=== PATIENT | male | born 1965 | race Caucasian/White ===

== ENCOUNTER 2017-01-10 02:17 | Emergency (ER) | payer OTHER ==
--- NOTE | 2017-01-10 02:32 | PDOC ---
History of Present Illness - General History Source: Patient Exam Limitations: No Limitations - History of Present Illness Initial Comments: 01/10/17 03:00 The patient is a 51 year old male, with a significant past medical history of hypertension, who presents to the emergency department complaining of a 2 day history of headache, and 1 day of abdominal pain. The patient reports his headache is worse than any headache he has had in the past. He reports the pain is bitemporal, constant, and mildly relieved by tylenol. The patient denies any aura, trauma, LOC, or history of migraines. The patient reports his abdominal pain is localized to the epigastric region, and describes it as a sharp non- radiating pain. He states his pain is mildly alleviated by drinking water. He denies any associated nausea, vomiting, diarrhea, constipation, hematochezia, or melena. The patient reports a nonproductive cough(x2 days) and a subjective fever, but denies any chills, headache, or dizziness. The patient reports mild sweats over the course of the afternoon 1 day ago. The patient denies any chest pain, palpitations, or shortness of breath. The patient denies any recent travel or sick contacts. Allergies: Penicillins(rash) Past Surgical History: None reported. Social History: Current everyday smoker. Denies alcohol or drug use. PCP: Dr. 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) - Psycho/Social/Smoking Cessation Hx Anxiety: No Suicidal Ideation: No Smoking Status: Yes Smoking History: Current some day smoker Have you smoked in the past 12 months: Yes Number of Cigarettes Smoked Daily: 5 Cigars Per Day: 1 'Breaking Loose' booklet given: 06/03/14 Hx Alcohol Use: Yes Drug/Substance Use Hx: Yes Substance Use Type: None Hx Substance Use Treatment: No <Jarrett Arredondo - Last Filed: 01/10/17 04:43> - Past Medical History Allergies/Adverse Reactions: Allergies Allergy/AdvReac Type Severity Reaction Status Date / Time Penicillins Allergy Rash Verified 01/10/17 02:33 Home Medications: Ambulatory Orders Quinapril HCl [Accupril -] 40 mg PO DAILY 06/03/14 Atorvastatin Ca [Lipitor] 10 mg PO HS 01/10/17 Azithromycin [Zithromax -] 250 mg PO UTDICT #6 tab 01/10/17 Hydrochlorothiazide [Hctz -] 25 mg PO DAILY 01/10/17 Ibuprofen 800 mg PO TID #30 tablet 01/10/17 Metformin HCl [Glucophage] 1,000 mg PO BID 01/10/17 Review of Systems - Review of Systems Able to Perform ROS?: Yes Comments:: 01/10/17 03:01 CONSTITUTIONAL: Present: +fever Absent: no chills, no fatigue EYES: Absent: visual changes ENT: Absent: ear pain, no sore throat CARDIOVASCULAR: Present: +night sweats Absent: chest pain, no palpitations RESPIRATORY: Present: +cough Absent: no SOB GI: Present: +abdominal pain Absent: no nausea, no vomiting, no constipation, no diarrhea GENITOURINARY: Absent: dysuria, no frequency, no hematuria MUSKULOSKELETAL: Absent: back pain, no arthralgia, no myalgia SKIN: Absent: rash NEURO: Present: +headache <Gary,Giomilsy - Last Filed: 01/10/17 03:00> *Physical Exam - Vital Signs Last Vital Signs Temp Pulse Resp BP Pulse Ox 100.5 F H 106 H 18 140/106 98 01/10/17 02:35 01/10/17 02:35 01/10/17 02:35 01/10/17 02:35 01/10/17 02:35 - Physical Exam Comments: 01/10/17 03:05 GENERAL: Well developed, well nourished. Awake and alert. No acute distress. HEENT: Normocephalic, atraumatic. PERRLA, EOMI. No conjunctival pallor. Sclera are non- icteric. Moist mucous membranes. Oropharynx is clear. No pharyngeal erythema or edema. Nasal congestion. NECK: Supple. Full ROM. No JVD. Carotid pulses 2+ and symmetric, without bruits. No thyromegaly. No lymphadenopathy. CARDIOVASCULAR: Regular rate and rhythm. No murmurs, rubs, or gallops. Distal pulses are 2+ and symmetric. PULMONARY: No evidence of respiratory distress. Lungs clear to auscultation bilaterally. No wheezing, rales or rhonchi. ABDOMINAL: Tenderness to palpation to the epigastric region. Soft. Non-distended. No rebound or guarding. No organomegaly. Normoactive bowel sounds. MUSCULOSKELETAL Normal range of motion at all joints. No bony deformities or tenderness. No cervical paraspinal muscle hypertonicity. No tenderness to palpation to cervical spine. No cervical lymphadenopathy EXTREMITIES: No cyanosis. No clubbing. No edema. No calf tenderness. SKIN: Warm and dry. Normal capillary refill. No rashes. No jaundice. NEUROLOGICAL: Alert, awake, appropriate. Cranial nerves 2-12 intact. No deficits to light touch and temperature in face, upper extremities and lower extremities. No motor deficits in the in face, upper extremities and lower extremities. Normoreflexic in the upper and lower extremities. Normal speech. Toes are down- going bilaterally. Gait is normal without ataxia. PSYCHIATRIC: Cooperative. Good eye contact. Appropriate mood and affect. <Avelina Gary - Last Filed: 01/10/17 03:00> ED Treatment Course - LABORATORY CBC & Chemistry Diagram: 01/10/17 03:17 01/10/17 03:17 <Jarrett Arredondo - Last Filed: 01/10/17 04:43> Medical Decision Making - Medical Decision Making 01/10/17 04:43 Dr. Arredondo: The scribe's documentation has been prepared under my direction and personally reviewed by me in its entirery. I confirm that the note above accurately reflects all work, treatment, procedures, and medical decision making performed by me. <Jarrett Arredondo - Last Filed: 01/10/17 04:43> *DC/Admit/Observation/Transfer - Attestations Scribe Attestion: 01/10/17 03:09 Documentation prepared by Avelina Gary, acting as medical communication specialist for Jarrett Arredondo DO. <Avelina Gary - Last Filed: 01/10/17 03:00> - Discharge Dispostion Admit: No <Jarrett Arredondo - Last Filed: 01/10/17 04:43> Diagnosis at time of Disposition: Upper respiratory infection Qualifiers: URI type: unspecified URI Qualified Code(s): J06.9 - Acute upper respiratory infection, unspecified - Discharge Dispostion Disposition: HOME Condition at time of disposition: Stable - Prescriptions Prescriptions: Ibuprofen 800 mg PO TID #30 tablet Azithromycin [Zithromax -] 250 mg PO UTDICT #6 tab - Referrals Referrals: Justyn Stephenson MD [Primary Care Provider] - - Patient Instructions Printed Discharge Instructions: DI for Viral Upper Respiratory Infection -- Adult Print Language: URUGUAYAN
[2017-01-10 02:37] VITALS: BMI 30.4
[2017-01-10] MEDS ORDERED: KETOROLAC TROMETHAMINE 30 MG/1 ML VIAL IVPUSH ONE (03:21)
[2017-01-10 03:37] LABS: BASOPHIL 1.3 % (0-2.0); EOSINOPHIL 3.2 % (0-4.5); MCH 27.9 pg (25.7-33.7); MCHC 33.2 g/dl (32.0-35.9); MEAN CELL VOLUME 84.1 fl (80-96); MEAN PLT VOLUME 9.3 fl (7.5-11.1); NEUTROPHILS 61.9 % (42.8-82.8); PLATELET COUNT 189 K/MM3 (134-434); RDW 13.8 % (11.9-15.9); WHITE BLOOD COUNT 5.1 K/mm3 (4.0-10.0)
[2017-01-10] MEDS ORDERED: IBUPROFEN 400 MG TABLET (FP) PO ONE ×2 (03:40→03:42)
[2017-01-10 04:00] LABS: ALBUMIN 4.1 g/dl (3.4-5.0); ANION GAP 6 (8-16); BILIRUBIN,TOTAL 0.5 mg/dL (0.2-1.0); CALCIUM 9.7 mg/dL (8.5-10.1); CO2 33 mmol/L (21-32); CREATININE 1.4 mg/dL (0.7-1.3); GLUCOSE,RANDOM 218 mg/dL (74-106); SGOT/AST 40 U/L (15-37); SGPT/ALT 78 U/L (12-78); TOT PROT 7.6 g/dl (6.4-8.2)
[2017-01-10 04:02] LABS: ALK PHOS 80 U/L (45-117); TROPONIN I < 0.02 ng/ml (0.00-0.05)
[2017-01-10] MEDS ORDERED: AZITHROMYCIN 250 MG TABLET (FP) PO ONE (04:41)
[2017-01-10] MEDS ORDERED: AZITHROMYCIN 250 MG TABLET (FP) ONE (04:49)
[2017-01-10 04:51] VITALS: BP 136/87; PULSE 92; TEMP 98.7
--- NOTE | 2017-01-10 10:59 | EKG ---
Test Reason : Blood Pressure : / mmHG Vent. Rate : 104 BPM Atrial Rate : 104 BPM P-R Int : 164 ms QRS Dur : 092 ms QT Int : 324 ms P-R-T Axes : 034 -03 033 degrees QTc Int : 426 ms SINUS TACHYCARDIA INFERIOR INFARCT , AGE UNDETERMINED CANNOT RULE OUT ANTERIOR INFARCT (CITED ON OR BEFORE 16-SEP-2012) ABNORMAL ECG WHEN COMPARED WITH ECG OF 16-SEP-2012 06:17, INFERIOR INFARCT IS NOW PRESENT Confirmed by ALLA MARIANO MD ([id number]) on 01/10/2017 10:59:00 AM Referred By: Confirmed By:ALLA MARIANO MD
== END 2017-01-10 04:53 | disposition home or self-care (01) ==
LOC: JER 02:17
DX: J06.9 Acute upper respiratory infection, unspecified (principal); B97.89 Other viral agents as the cause of diseases classified elsewhere
CPT/HCPCS: 36415; 71020-TC; 80053; 82550; 82553; 84484; 85025; 87804; 93005; 93010; 99282-25

== ENCOUNTER 2021-07-01 14:38 | Emergency (ER) | payer OTHER ==
[2021-07-01 14:57] VITALS: TEMP 99; BMI 34.2
[2021-07-01] MEDS ORDERED: ACETAMINOPHEN 325 MG TABLET (FP) PO ONE (14:58)
[2021-07-01] MEDS ORDERED: ACETAMINOPHEN 325 MG TABLET (FP) ONE (15:02)
[2021-07-01 16:17] VITALS: BP 168/72; PULSE 76
== END 2021-07-01 16:15 | disposition home or self-care (01) ==
LOC: FER 14:38
DX: I10 Essential (primary) hypertension (principal)
CPT/HCPCS: 99283-25

== ENCOUNTER 2023-06-23 11:51 | Inpatient (IN) | payer OTHER ==
[2023-06-23 13:08] LABS: BASO % 0.4 % (0-2.0); EOS % 0.2 % (0-4.5); HEMATOCRIT 36.8 % (35.4-49); HEMOGLOBIN 12.5 GM/dL (11.7-16.9); LYMPH % 7.9 % (8-40); MCH 28.7 pg (25.7-33.7); MCHC 33.9 g/dl (32.0-35.9); MEAN CELL VOLUME 84.7 fl (80-96); MEAN PLT VOLUME 9.3 fl (7.5-11.1); MONO % 10.6 % (3.8-10.2); NEUT % 80.9 % (42.8-82.8); PLATELET COUNT 159 10^3/uL (134-434); RBC 4.35 M/mm3 (4.00-5.60); RDW 13.5 % (11.9-15.9); WHITE BLOOD COUNT 4.6 K/mm3 (4.0-10.0)
[2023-06-23] MEDS ORDERED: SODIUM CHLORIDE 0.9% 500 ML INFUS.BAG IV ONE (13:30)
[2023-06-23] MEDS ORDERED: ACETAMINOPHEN 1000 MG/100 ML BAG IVPB ONE ×2 (13:30→21:30)
[2023-06-23] MEDS ORDERED: ACETAMINOPHEN INJECTION 100 ML IVPB ONE (13:39)
[2023-06-23 13:50] LABS: EPI CELLS 12 /uL (0-25.1); HYALINE CASTS 1 /uL (0-3.1); URINE APPEARANCE CLEAR; URINE BACTERIA 7 /uL (0-1359); URINE BILIRUBIN NEGATIVE (NEGATIVE); URINE COLOR YELLOW; URINE GLUCOSE (UA) NEGATIVE (NEGATIVE); URINE KETONE NEGATIVE (NEGATIVE); URINE LEUK ESTERASE TRACE (NEGATIVE); URINE NITRITE NEGATIVE (NEGATIVE); URINE PROTEIN TRACE (NEGATIVE); URINE RBC 118 /uL (0-23.9); URINE WBC 24 /uL (0-25.8)
[2023-06-23 14:38] LABS: ALBUMIN 3.2 g/dl (3.4-5.0); BILIRUBIN,TOTAL 0.9 mg/dL (0.2-1); BLOOD UREA NITROGEN 15.1 mg/dL (7-18); CALCIUM 8.8 mg/dL (8.5-10.1); CREATININE 1.7 mg/dL (0.55-1.3); POTASSIUM 3.9 mmol/L (3.5-5.1); TOT PROT 7.2 g/dl (6.4-8.2)
[2023-06-23] MEDS ORDERED: KETOROLAC TROMETHAMINE 15 MG/ML VIAL IVPUSH PRN (15:52)
[2023-06-23] MEDS ORDERED: SODIUM CHLORIDE 1,000 ML IV STA (16:13)
[2023-06-23] MEDS ORDERED: PIPERACILLIN/TAZOB 3.375 GM 3.375 GM in DEXTROSE 5%-WATER - 50 ML IVPB SCH (18:00)
[2023-06-23] MEDS ORDERED: MEROPENEM 1 GM in DEXTROSE 5%-WATER 100 ML IVPB SCH (18:00)
[2023-06-23] MEDS: MEROPENEM 1 GM in DEXTROSE 5%-WATER 100 ML IVPB SCH (18:15)
[2023-06-23] MEDS: INSULIN SLIDING SCALE (NOVOLOG) 1 VIAL SQ SCH (18:20)
[2023-06-23 18:32] VITALS: BMI 14.1
[2023-06-23] MEDS: ACETAMINOPHEN 325 MG TABLET (FP) PO PRN (19:38)
[2023-06-23] MEDS: HEPARIN NA (PORCINE) 5,000 UNITS/ML 1ML VIAL SQ SCH (22:10)
[2023-06-23] MEDS: ROSUVASTATIN CA 10 MG TABLET PO SCH (22:10)
[2023-06-24] MEDS: MEROPENEM 1 GM in DEXTROSE 5%-WATER 100 ML IVPB SCH ×3 (01:27→17:38)
[2023-06-24] MEDS: HEPARIN NA (PORCINE) 5,000 UNITS/ML 1ML VIAL SQ SCH ×3 (06:20→21:43)
[2023-06-24] MEDS: INSULIN SLIDING SCALE (NOVOLOG) 1 VIAL SQ SCH ×4 (06:24→21:56)
[2023-06-24 08:24] LABS: HEMATOCRIT 36.4 % (35.4-49); HEMOGLOBIN 12.1 GM/dL (11.7-16.9); MCH 28.5 pg (25.7-33.7); MCHC 33.2 g/dl (32.0-35.9); MEAN CELL VOLUME 85.7 fl (80-96); MEAN PLT VOLUME 9.7 fl (7.5-11.1); PLATELET COUNT 154 10^3/uL (134-434); RBC 4.25 M/mm3 (4.00-5.60); RDW 13.3 % (11.9-15.9); WHITE BLOOD COUNT 4.3 K/mm3 (4.0-10.0)
[2023-06-24 08:30] LABS: POTASSIUM 4.1 mmol/L (3.5-5.1)
[2023-06-24 08:38] LABS: CALCIUM 8.5 mg/dL (8.5-10.1)
[2023-06-24 08:39] LABS: ALBUMIN 2.8 g/dl (3.4-5.0); BLOOD UREA NITROGEN 14.2 mg/dL (7-18)
[2023-06-24 08:42] LABS: CREATININE 1.4 mg/dL (0.55-1.3)
[2023-06-24 08:43] LABS: TOT PROT 6.5 g/dl (6.4-8.2)
[2023-06-24 08:44] LABS: BILIRUBIN,TOTAL 0.6 mg/dL (0.2-1)
[2023-06-24] MEDS: PANTOPRAZOLE 20 MG TABLET PO SCH (10:13)
[2023-06-24] MEDS: ACETAMINOPHEN 325 MG TABLET (FP) PO PRN (17:37)
[2023-06-24] MEDS: ROSUVASTATIN CA 10 MG TABLET PO SCH (21:45)
[2023-06-25] MEDS: MEROPENEM 1 GM in DEXTROSE 5%-WATER 100 ML IVPB SCH ×3 (02:11→17:36)
[2023-06-25] MEDS: HEPARIN NA (PORCINE) 5,000 UNITS/ML 1ML VIAL SQ SCH ×3 (06:30→21:26)
[2023-06-25] MEDS: INSULIN SLIDING SCALE (NOVOLOG) 1 VIAL SQ SCH ×4 (06:30→21:46)
[2023-06-25 08:59] LABS: BASO % 0.5 % (0-2.0); HEMATOCRIT 35.4 % (35.4-49); HEMOGLOBIN 12.1 GM/dL (11.7-16.9); LYMPH % 17.9 % (8-40); MCH 28.7 pg (25.7-33.7); MCHC 34.1 g/dl (32.0-35.9); MEAN CELL VOLUME 84.1 fl (80-96); MEAN PLT VOLUME 8.5 fl (7.5-11.1); MONO % 16.8 % (3.8-10.2); NEUT % 62.8 % (42.8-82.8); PLATELET COUNT 199 10^3/uL (134-434); RBC 4.21 M/mm3 (4.00-5.60); RDW 13.5 % (11.9-15.9); WHITE BLOOD COUNT 5.7 K/mm3 (4.0-10.0)
[2023-06-25 09:26] LABS: POTASSIUM 4.1 mmol/L (3.5-5.1)
[2023-06-25 09:31] LABS: BLOOD UREA NITROGEN 11.8 mg/dL (7-18); CALCIUM 8.6 mg/dL (8.5-10.1)
[2023-06-25 09:32] LABS: MAGNESIUM 1.7 mg/dL (1.8-2.4)
[2023-06-25 09:34] LABS: CREATININE 1.3 mg/dL (0.55-1.3)
[2023-06-25 09:36] LABS: BILIRUBIN,TOTAL 0.4 mg/dL (0.2-1); TOT PROT 6.9 g/dl (6.4-8.2)
[2023-06-25] MEDS: PANTOPRAZOLE 20 MG TABLET PO SCH (10:29)
[2023-06-25] MEDS ORDERED: INSULIN (NOVOLOG) ASPART 100 UNITS/ML 10ML VIAL ONE ×2 (11:07→21:18)
[2023-06-25] MEDS ORDERED: MAGNESIUM OXIDE 400 MG TABLET (FP) PO ONE (13:22)
[2023-06-25] MEDS: CLOTRIMAZOLE/BETAMET DIPROP 15 GM TUBE TP SCH ×2 (19:42→21:28)
[2023-06-25] MEDS: ROSUVASTATIN CA 10 MG TABLET PO SCH (21:26)
[2023-06-26] MEDS: MEROPENEM 1 GM in DEXTROSE 5%-WATER 100 ML IVPB SCH ×3 (01:32→17:24)
[2023-06-26] MEDS: HEPARIN NA (PORCINE) 5,000 UNITS/ML 1ML VIAL SQ SCH (05:37)
[2023-06-26] MEDS ORDERED: INSULIN (LEVEMIR) 100 UNITS/ML UNITS SQ ONE (05:54)
[2023-06-26] MEDS: INSULIN SLIDING SCALE (NOVOLOG) 1 VIAL SQ SCH ×3 (07:05→17:38)
[2023-06-26 07:48] LABS: BASO % 0.6 % (0-2.0); EOS % 3.6 % (0-4.5); HEMATOCRIT 35.4 % (35.4-49); HEMOGLOBIN 11.5 GM/dL (11.7-16.9); LYMPH % 24.8 % (8-40); MCH 27.6 pg (25.7-33.7); MCHC 32.5 g/dl (32.0-35.9); MEAN CELL VOLUME 84.9 fl (80-96); PLATELET COUNT 229 10^3/uL (134-434); RBC 4.17 M/mm3 (4.00-5.60); RDW 13.2 % (11.9-15.9); WHITE BLOOD COUNT 6.4 K/mm3 (4.0-10.0)
[2023-06-26 08:48] LABS: CALCIUM 8.8 mg/dL (8.5-10.1)
[2023-06-26 08:49] LABS: ALBUMIN 2.9 g/dl (3.4-5.0); BLOOD UREA NITROGEN 12.5 mg/dL (7-18); MAGNESIUM 1.8 mg/dL (1.8-2.4)
[2023-06-26 08:52] LABS: CREATININE 1.2 mg/dL (0.55-1.3)
[2023-06-26 08:53] LABS: BILIRUBIN,TOTAL 0.3 mg/dL (0.2-1); TOT PROT 6.7 g/dl (6.4-8.2)
[2023-06-26] MEDS: CLOTRIMAZOLE/BETAMET DIPROP 15 GM TUBE TP SCH (10:51)
[2023-06-26] MEDS: PANTOPRAZOLE 20 MG TABLET PO SCH (10:51)
[2023-06-26 10:57] VITALS: RESP 18
[2023-06-26 18:50] VITALS: BP 142/88; PULSE 74; TEMP 98.3
[2023-06-27] MEDS ORDERED: ERTAPENEM SODIUM 1 GM in SODIUM CHLORIDE 50 ML IVPB SCH (10:00)
== END 2023-06-26 18:30 | disposition home health service (06) | DRG 463 ==
LOC: JER 11:51 → JERBED 15:49 → J7W 18:03 → INTOOBSV 06-24 10:40 → OBSVTOIN 06-24 10:40
PROVIDERS: ADMIT Internal Medicine; ATTEND Nurse Practitioner Acute Care
PROC: 02HV33Z Insertion of Infusion Device into Superior Vena Cava, Percutaneous Approach (ICD-10-PCS; principal; 2023-06-26)
PROC: B518ZZA Fluoroscopy of Superior Vena Cava, Guidance (ICD-10-PCS; 2023-06-26)
DX: N39.0 Urinary tract infection, site not specified (principal); I10 Essential (primary) hypertension; E11.9 Type 2 diabetes mellitus without complications; K21.9 Gastro-esophageal reflux disease without esophagitis; E78.5 Hyperlipidemia, unspecified; M51.26 Other intervertebral disc displacement, lumbar region; N17.9 Acute kidney failure, unspecified; E86.0 Dehydration; E87.1 Hypo-osmolality and hyponatremia; Z16.12 Extended spectrum beta lactamase (ESBL) resistance; N12 Tubulo-interstitial nephritis, not specified as acute or chronic
CPT/HCPCS: 0241U-QW; 36415; 36569; 71045-TC-FY; 77001-TC-FY; 80053; 81003; 81015; 82962; 83735; 85025; 85027; 87040; 87086; 87186; 93005; 93010; 99285-25; C1751; G0378; J1644

== ENCOUNTER 2024-08-17 09:34 | Emergency (ER) | payer OTHER ==
[2024-08-17 09:54] VITALS: BP 188/118; PULSE 64; RESP 20; TEMP 98.8; BMI 34.1
[2024-08-17] MEDS ORDERED: IBUPROFEN 400 MG TABLET (FP) PO ONE (09:58)
[2024-08-17] MEDS ORDERED: LIDOCAINE 5% TOPICAL PATCH ONE (09:58)
[2024-08-17] MEDS: LIDOCAINE 5% TOPICAL PATCH TP ONE (09:59)
[2024-08-17] MEDS: IBUPROFEN 400 MG TABLET (FP) PO ONE (09:59)
[2024-08-17] MEDS ORDERED: LIDOCAINE PATCH REMOVAL MC ONE (22:00)
== END 2024-08-17 10:54 | disposition home or self-care (01) ==
LOC: FER 09:34
DX: M54.50 Low back pain, unspecified (principal)
CPT/HCPCS: 99283-25